=== PATIENT | male | born 1950 | race Caucasian/White ===

== ENCOUNTER 2023-10-06 08:33 | Inpatient (IN) | payer MEDICARE, OTHER, SELFPAY ==
[2023-10-06 08:34] VITALS: BP 149/87; PULSE 96; RESP 18; TEMP 35.6; O2SAT 98; BMI 24.3
--- NOTE | 2023-10-06 09:55 | CT_ITS ---
STUDY: CT PELVIS WITH CONTRAST REASON FOR EXAM: Male, 72 years old. Right buttock cellulitis ? Abscess RADIATION DOSAGE (If Supplied By Facility): CTDIvol = ( 7.10 ) mGy, DLP = ( 310.55 ) mGycm TECHNIQUE: Transaxial imaging of the pelvis was performed without oral contrast. 100 CC ISOVUE 300 was administered intravenously. Multiplanar coronal and sagittal images were reformatted. Individualized dose optimization techniques were used for this CT. COMPARISON: None. FINDINGS: There are extensive inflammatory changes in the medial aspect of the upper right buttock in the subcutaneous tissues. There is a focal area of decreased attenuation measuring 2.7 cm x 2 cm x 2.9 cm. This may represent phlegmon with early abscess formation. Distended urinary bladder. Central prostatic calcification. The prostate measures 4 cm x 4.8 cm. Normal visualized small intestine. Normal visualized colon. There is no pelvic fluid. There is no pelvic lymphadenopathy or mass lesion. Normal visualized pelvic arteries. Normal abdominal wall. The patient is status post right total hip replacement. CT/Pelvis WITH IV Contrast IMPRESSION: Inflammatory changes seen in the medial aspect of the proximal right buttock in keeping with a cellulitis. Focal area of the soft tissue density with early abscess formation measuring 2.7 cm x 2 cm x 2.9 cm. Electronically Signed: Trent Liz MD at 11:02 EST ,
--- NOTE | 2023-10-06 09:58 | EX.ED.DYSGE1 ---
HPI History of Present Illness Chief Complaint: Wound Detail of Chief Complaint: Right buttock redness, swelling and pain. Informant: patient and spouse/S.O. Onset/Context/Timing Onset: Days Context: Gradual Onset Timing: Continuous Current Severity: Moderate Maximum Severity: Moderate Narrative Narrative: Healthy 72-year-old male no seen past medical history. He had a lump on his right buttock was seen in urgent care at the [facility] was placed on antibiotic Bactrim. He had no incision and drainage. Now he is having increasing pain redness and swelling. He denies any fever or chills. Prior similar symptoms: No Recent Illness/Hospitalization: No PFSH PFSH Medical History no medical history no medical history Home Medications amoxicillin 500 mg capsule 2,000 mg PO X1 dental procedure 10/06/23 [History Last Taken 07/28/23] pantoprazole 40 mg tablet,delayed release 40 mg PO DAILY ACID REFLUX 10/06/23 [History Last Taken Unknown] sulfamethoxazole 800 mg-trimethoprim 160 mg tablet 1 tab PO Q12H ANTIBIOTIC 10/06/23 [History Last Taken Unknown] Allergy/AdvReac Type Severity Reaction Status Date / Time No Known Allergies Allergy Verified 10/06/23 10:28 Surgical History no surgical history no surgical history Social History Smoking Status: Never smoker ROS ROS ED ROS Narrative Right buttock cellulitis and pain. No fever or chills. No recent illness. Review of Systems ROS Unobtainable: Denies due to encephalopathy Constitutional Constitutional ED: Denies chills or fever(s) Eyes Eyes: Denies blurry vision ENT ENT ED: Denies ear pain Cardiovascular Cardiovascular: Denies chest pain Respiratory/Chest Respiratory/Chest: Denies cough or dyspnea Gastrointestinal Gastrointestinal: Denies abdominal pain Genitourinary Genitourinary ED: Denies dysuria or hematuria Musculoskeletal Musculoskeletal: Denies arthralgias or back pain Integumentary Denies abscess or Abrasions Neurologic Neurologic: Denies headache(s) Psychiatric Psychiatric: Denies anxiety or depression Endocrine Endocrinology: Denies cold intolerance Hematologic/Lymphatic Hematologic/Lymphatic: Reports none Allergic/Immunologic Allergic/Immunologic ED: Denies mouth swelling or tongue swelling EXAM Physical Exam Narrative Exam Narrative: 72-year-old no acute distress. Vital signs are stable afebrile. H EENT exam unremarkable. Neck nontender. Lungs clear. Heart regular rhythm no murmur. Chest wall nontender. Abdomen soft nontender. Back unremarkable. Moving all 4 extremities. His right buttock medially and towards his buttock cleft there is a large area of cellulitis and tenderness. I do not palpate an obvious abscess or see any pus. There is no drainage. It is localized to that area and towards the anus. Neurologically patient is awake and alert. He does not look in septic or toxic. is present in the room. Const Vital Signs: 10/06/23 08:34 10/06/23 12:01 10/06/23 14:26 Temperature 96.1 F L 98.4 F Temperature Source Temporal Pulse Rate 96 75 78 Respiratory Rate 18 14 17 Blood Pressure 149/87 H 136/80 H 142/81 H Blood Pressure Mean 107 98 101 Pulse Ox 98 96 96 Oxygen Delivery Method Room Air Room Air Positive well nourished and well developed; Negative for obese, cachectic, contractures or unkempt General Appearance ED: well developed and NAD; Negative for unkempt, cachectic, contractures, cyanotic, diaphoretic or pallor Nutritional Appearance: Negative for cachectic or obese HEENT Reports moist mucous membranes; Denies dry mucous membranes Negative for trauma or tenderness Mouth ED: No dry mucous membranes Mouth: No dry mucous membranes Eyes PERRL and EOMs intact bilaterally General Eye ED: Negative for pale conjunctiva Neck no lymphadenopathy, supple and no JVD General: Negative for tenderness Lymph Lymphatic: Negative for other Chest Wall inspection of chest normal and palpation of chest normal Chest: Negative for other Resp normal respiratory effort and clear to auscultation bilaterally Effort and Inspection: Negative for retractions Auscultation: Negative for rales, rhonchi or wheezes Cardio regular rate, regular rhythm, S1 normal heart sound, S2 normal heart sound and no murmurs Palpation: Negative for palpable S3 or palpable S4 Rate: Negative for bradycardia or tachycardic Rhythm: Negative for abnormal rhythm GI normal to inspection, nondistended, normoactive bowel sounds, non-tender, non-distended and no masses GI Narrative: Right buttock has redness, tenderness and some edema. It is an obvious cellulitis on the medial aspect of the right buttock towards his anus. There is no obvious abscess on the skin. Tender to palpation. Inspection: Negative for abdominal distention Auscultation: normoactive bowel sounds Palpation: soft and rebound tenderness present; Negative for tender or guarding Back/Spine no CVA tenderness General Back: Negative for CVA tenderness Cervical Spine: Negative for cervical spine tenderness Thoracic Spine / Upper Back: Negative for thoracic spinal tenderness or paraspinal muscle tenderness Lumbar Spine / Lower Back: Negative for lumbar spinal tenderness Extremity normal to inspection General Extremety ED: Negative for edema or tenderness General Extremity: Negative for edema Neuro oriented x3 and CN's II-XII intact bilaterally Sensorium / Orientation: alert; Negative for orientation impaired, lethargic or stuporous Motor Exam: strength 5/5 throughout; Negative for general weakness or strength abnormal Psych mental status grossly normal Appearance: Negative for unkempt Attitude: No agitated Mood & Affect: Negative for depressed, anxious or tearful Skin no rashes or lesions noted and no wounds Skin Narrative: Right buttock cellulitis medially. General Skin Exam: Negative for jaundice or pallor Lesions: No lesion noted MDM MDM MDM Narrative Medical decision making narrative: Healthy 72-year-old 1 week history of what sounds like a right buttock abscess with cellulitis was treated with outpatient Bactrim by an urgent care but no incision and drainage was done. It is only gotten worse. He denies any systemic symptoms. I do not see an obvious abscess at this time it may be deeper in the soft tissue. Screening labs, CAT scan are being obtained. To be given a dose of IV Unasyn. Right buttock let was applied. I cleaned the area with alcohol. I tried a aspiration with a 19-gauge needle and there was no pus. I spoke with the general surgeon Dr. Hans kwong. He reviewed the CAT scan also. No obvious abscess. After he and I talked I did the aspiration there was no pus so we do not feel that incision and drainage would be helpful at this time. History & Record Review Discussion w/independent historian: Patient Lab Data Attestation: I reviewed the patient's lab results. Lab results narrative: CBC shows white count 9. H&H 12 and 37. Platelets 235. Electrolytes show a gap of 5. Normal BUN of 13 creatinine 0.9. Glucose 99. CAT scan shows cellulitis of his buttock. Labs: Laboratory Results - last 24 hr 10/06/23 10:05 WBC 9.7 RBC 3.95 L Hgb 12.3 L Hct 37.3 L MCV 94.4 H MCH 31.1 MCHC 33.0 RDW Std Deviation 42.9 RDW Coeff of So 12.3 Plt Count 235 MPV 10.1 Immature Gran % (Auto) 0.500 Neut % (Auto) 65.7 Lymph % (Auto) 17.7 L [place] % (Auto) 13.9 H Eos % (Auto) 1.5 Baso % (Auto) 0.7 Absolute Neuts (auto) 6.4 Absolute Lymphs (auto) 1.72 Nucleated RBC % 0 Sodium 137 Potassium 4.0 Chloride 105 Carbon Dioxide 27.0 Anion Gap 5 BUN 13 Creatinine 0.94 Estim Creat Clear Calc 67.71 Est GFR (MDRD) Af Amer 100 Est GFR (MDRD) Non-Af 83 BUN/Creatinine Ratio 13.8 Glucose 99 Calcium 8.7 Radiography Diagnostic Testing: Clinical Impression(s) from Imaging Studies Pelvis CT 10/06/23 09:55 IMPRESSION: Inflammatory changes seen in the medial aspect of the proximal right buttock in keeping with a cellulitis. Focal area of the soft tissue density with early abscess formation measuring 2.7 cm x 2 cm x 2.9 cm. Electronically Signed: Trent Liz MD at 11:02 EST , Discharge Plan Dx/Rx/DC Orders Clinical Impression: Failure of outpatient treatment, Cellulitis of buttock, right Disposition Disposition: Acute Care [facility]
[2023-10-06 10:15] LABS: Absolute Lymphocyte Count 1.72 X10^3/uL (0.83-4.51); Absolute Neutrophil Count 6.4 X10^3/uL (2.0-7.7); Basophil# 0.07 X10^3/uL; Basophil% 0.7 % (0-1); Eosinophil# 0.15 X10^3/uL; Eosinophils% 1.5 % (0-5); Hematocrit 37.3 % (40-54); Hemoglobin 12.3 g/dL (13.0-16.5); Lymphocyte # 1.72 X10^3/ul (0.83-4.51); Lymphocyte % 17.7 % (19-41); Mean Corpuscular Hgb 31.1 pg (27.0-32.0); Mean Corpuscular Volume 94.4 fL (80-94); Mean Platelet Vol. 10.1 fl (6.2-12.0); Monocyte# 1.35 X10^3/uL; Monocyte% 13.9 % (0-10); NRBC Flagged by Analyzer 0 % (0-5); Neutrophil # 6.37 X10^3/uL (2.7-7.7); Neutrophil % 65.7 % (47-70); Platelet Count 235 K/mm3 (150-450); RBC Distribution Width CV 12.3 % (11.6-14.6); RBC Distribution Width SD 42.9 fl (35.1-43.9); Red Blood Count 3.95 M/mm3 (4.6-6.2); White Blood Count 9.7 K/mm3 (4.4-11.0)
[2023-10-06 10:32] LABS: Anion Gap 5 (5-15); BUN 13 mg/dL (7-18); BUN/Creat Ratio 13.8 RATIO (10-20); Calcium,Total 8.7 mg/dL (8.5-10.1); Chloride 105 mmol/L (98-107); Creatinine, Serum 0.94 mg/dL (0.70-1.30); EST Glomerular Filtration Rate 83 mL/min (>60); Est Glom Filt Rate - Afr Amer 100 mL/min (>60); Estimated Creatinine Clearance 67.71 ml/min; Glucose 99 mg/dL (74-106); Sodium Level 137 mmol/L (136-145)
[2023-10-06] MEDS: Ampicillin/Sulbactam 3 GM in 0.9% Normal Saline (100mL MB+) 100 ML IV ×3 (10:47→23:21)
[2023-10-06 12:01] VITALS: BP 136/80; PULSE 75; RESP 14; O2SAT 96
[2023-10-06 14:26] VITALS: BP 142/81; PULSE 78; RESP 17; TEMP 36.9; O2SAT 96
--- NOTE | 2023-10-06 15:57 | HP.PCM.HOS_ITS ---
HPI - General General Date of Admission: 10/06/23 Date of Service: 10/06/23 Chief Complaint: Right buttock cellulitis HPI Narrative NIRMALA PALOMINO, is a 72-year-old male history of GERD presented to [facility] ED 10/06/2023 with right buttock redness and swelling. Was seen recently in urgent care at [facility] and placed on Bactrim but symptoms have worsened prompting him to come to ED. In the ED lab workup overall unremarkable but there were inflammatory changes seen on CT scan on medial aspect of proximal right buttock in keeping with cellulitis, there is a question of early abscess formation, attempted aspiration in ED with no pus, case was discussed with surgery who reviewed CT and did not feel there was an abscess or need for I&D at this time and it was recommended patient be admitted for IV antibiotics due to failure of outpatient management. Patient evaluated with at bedside, reportedly the symptoms have been going on for a week and then over the past couple of days despite antibiotics have worsened, denies any problems with his urination or bowels, does have pain with his redness and swe lling but no fevers or chills, no other focal or systemic complaints PFSH Medical History no medical history Home Medications amoxicillin 500 mg capsule 2,000 mg PO X1 dental procedure 10/06/23 [History Last Taken 07/28/23] pantoprazole 40 mg tablet,delayed release 40 mg PO DAILY ACID REFLUX 10/06/23 [History Last Taken Unknown] sulfamethoxazole 800 mg-trimethoprim 160 mg tablet 1 tab PO Q12H ANTIBIOTIC 10/06/23 [History Last Taken Unknown] Allergy/AdvReac Type Severity Reaction Status Date / Time No Known Allergies Allergy Verified 10/06/23 10:28 Surgical History no surgical history Social History Smoking Status: Never smoker ROS ROS Narrative General: Denies fever/chills HENT: Denies headache, denies stuffy nose, denies sore throat EYES: Denies changes in vision Resp: Denies cough, denies shortness of breath Cardiac: Denies chest pain GI: Denies abdominal pain, denies changes in bowel, denies nausea/vomiting : Denies changes in urination Extremity: Denies swelling MSK: Denies weakness Neuro: Denies any numbness/tingling Heme: Denies any bleeding or bruising Skin: Erythema, induration, swelling on inner aspect of right buttock Psychiatric: No complaints voiced Vital Signs Vital Signs Vital Signs: 10/06/23 08:34 10/06/23 12:01 10/06/23 14:26 Temperature 96.1 F L 98.4 F Temperature Source Temporal Pulse Rate 96 75 78 Respiratory Rate 18 14 17 Blood Pressure 149/87 H 136/80 H 142/81 H Blood Pressure Mean 107 98 101 Pulse Ox 98 96 96 Oxygen Delivery Method Room Air Room Air Weight Weight: 72.439 kg Body Mass Index (BMI) 24.3 Physical Exam Narrative General: Alert, oriented, no apparent distress HEENT: Atraumatic, normocephalic Eyes: Anicteric, normal conjunctiva, extraocular movements grossly intact Neck: Supple Respiratory: Clear to auscultation bilaterally, normal respiratory effort Cardiovascular: Regular rate and rhythm GI: Soft, nontender, nondistended Extremities: No edema Musculoskeletal: Moving all extremities Neuro: No overt focal neurological deficits Skin: Ill-defined erythema on right buttock with induration, slight pain on palpation, no focal fluid collection appreciated Psych: Cooperative Results Lab / Micro Data 10/06/23 10:05 10/06/23 10:05 Labs: Laboratory Results - last 24 hr 10/06/23 10:05: WBC 9.7, RBC 3.95 L, Hgb 12.3 L, Hct 37.3 L, MCV 94.4 H, MCH 31.1, MCHC 33.0, RDW Std Deviation 42.9, RDW Coeff of So 12.3, Plt Count 235, MPV 10.1, Immature Gran % (Auto) 0.500, Neut % (Auto) 65.7, Lymph % (Auto) 17.7 L, [place] % (Auto) 13.9 H, Eos % (Auto) 1.5, Baso % (Auto) 0.7, Absolute Neuts (auto) 6.4, Absolute Lymphs (auto) 1.72, Nucleated RBC % 0, Sodium 137, Potassium 4.0, Chloride 105, Carbon Dioxide 27.0, Anion Gap 5, BUN 13, Creatinine 0.94, Estim Creat Clear Calc 67.71, Est GFR (MDRD) Af Amer 100, Est GFR (MDRD) Non-Af 83, BUN/Creatinine Ratio 13.8, Glucose 99, Calcium 8.7 Imaging Radiology Impression Pelvis CT 10/06/23 09:55 IMPRESSION: Inflammatory changes seen in the medial aspect of the proximal right buttock in keeping with a cellulitis. Focal area of the soft tissue density with early abscess formation measuring 2.7 cm x 2 cm x 2.9 cm. Electronically Signed: Trent Liz MD at 11:02 EST , Assessment & Plan Assessment/Plan (1) Cellulitis of buttock, right: (2) GERD (gastroesophageal reflux disease): PLAN: Plan #Right buttock cellulitis -inflammatory changes seen on CT scan on medial aspect of proximal right buttock in keeping with cellulitis, there is a question of early abscess formation, attempted aspiration in ED with no pus, case was discussed with surgery who reviewed CT and did not feel there was an abscess or need for I&D at this time -Will admit for IV fluids and IV antibiotics -Will check MRSA swab -Supportive care #GERD -Continue PPI #DVT ppx: Lovenox subcu Sanjuanita Anton MD Charges/Coding Visit Charges Inpatient E&M: 91615 Init Hosp L1
[2023-10-06 17:15] VITALS: BP 140/83; PULSE 85; RESP 16; TEMP 37.1; O2SAT 96; BMI 22.7
[2023-10-06] MEDS: 0.9% Saline Lock 10 ML Syringe IV (17:53)
[2023-10-06] MEDS: 0.9% Normal Saline (1000mL) 1,000 ML 50 ML IV (17:53)
[2023-10-06] MEDS: Vancomycin IV 1,000 MG/200 ML BAG 200 MG IV (19:47)
[2023-10-06 21:00] VITALS: BP 137/70; PULSE 81; RESP 16; TEMP 37.1; O2SAT 98
[2023-10-06 21:14] LABS: M R Staph aureus DNA By PCR Negative (Negative); Probe Check PASS; Specimen Processing Control PASS
[2023-10-07 02:15] VITALS: BP 119/70; PULSE 90; RESP 16; TEMP 37.2; O2SAT 96
[2023-10-07] MEDS: Ampicillin/Sulbactam 3 GM in 0.9% Normal Saline (100mL MB+) 100 ML IV ×4 (05:31→23:17)
[2023-10-07 06:48] LABS: Absolute Lymphocyte Count 1.54 X10^3/uL (0.83-4.51); Absolute Neutrophil Count 7.5 X10^3/uL (2.0-7.7); Basophil# 0.06 X10^3/uL; Basophil% 0.6 % (0-1); Eosinophil# 0.11 X10^3/uL; Hematocrit 34.7 % (40-54); Hemoglobin 11.7 g/dL (13.0-16.5); Lymphocyte # 1.54 X10^3/ul (0.83-4.51); Lymphocyte % 14.3 % (19-41); Mean Corp Hgb Conc 33.7 g/dL (32-36); Mean Corpuscular Hgb 31.9 pg (27.0-32.0); Mean Corpuscular Volume 94.6 fL (80-94); Mean Platelet Vol. 10.5 fl (6.2-12.0); Monocyte# 1.47 X10^3/uL; Monocyte% 13.6 % (0-10); NRBC Flagged by Analyzer 0 % (0-5); Neutrophil # 7.52 X10^3/uL (2.7-7.7); Neutrophil % 69.9 % (47-70); Platelet Count 235 K/mm3 (150-450); RBC Distribution Width CV 12.4 % (11.6-14.6); RBC Distribution Width SD 43.1 fl (35.1-43.9); Red Blood Count 3.67 M/mm3 (4.6-6.2); White Blood Count 10.8 K/mm3 (4.4-11.0)
[2023-10-07 07:04] LABS: Anion Gap 3 (5-15); BUN 16 mg/dL (7-18); BUN/Creat Ratio 19.2 RATIO (10-20); Calcium,Total 8.7 mg/dL (8.5-10.1); Chloride 108 mmol/L (98-107); Creatinine, Serum 0.83 mg/dL (0.70-1.30); EST Glomerular Filtration Rate 96 mL/min (>60); Est Glom Filt Rate - Afr Amer 116 mL/min (>60); Estimated Creatinine Clearance 76.18 ml/min; Glucose 106 mg/dL (74-106); Potassium 4.2 mmol/L (3.5-5.1); Sodium Level 136 mmol/L (136-145)
[2023-10-07] MEDS: Vancomycin IV 500 MG/100 ML BAG 100 MG IV ×2 (08:06→19:47)
[2023-10-07] MEDS: Enoxaparin 40 MG/0.4 ML Syringe SC (09:13)
[2023-10-07] MEDS: Senna/Docusate Sodium 1 Tablet 2 TABLET PO (09:15)
[2023-10-07] MEDS: Pantoprazole Sodium 40 MG Tablet PO (09:15)
[2023-10-07 09:21] VITALS: BP 147/76; PULSE 80; RESP 18; TEMP 36.4; O2SAT 96
[2023-10-07 09:25] VITALS: PULSE 80
--- NOTE | 2023-10-07 12:57 | PCM.PROGNOTE ---
Subjective Subjective Patient seen and examined. He feels well today. He had no active complaints. He was admitted with a complaint of lump on his right buttock that is gradually gotten bigger and is to be managed for cellulitis of the right buttock. He denies any PE. Review of systems otherwise negative. Objective Data Objective Data Vital Signs: Vital Signs Temp Pulse Resp BP Pulse Ox O2 Del Method 97.6 F L 80 18 147/76 H 96 Room Air 10/07/23 09:21 10/07/23 09:25 10/07/23 09:21 10/07/23 09:21 10/07/23 09:21 10/07/23 09:25 Oxygen Delivery Method Room Air Weight: 149 lb 12.8 oz Body Mass Index (BMI) 22.7 Intake & Output: Intake and Output for Last 24 Hours 10/05/23 10/06/23 10/07/23 23:59 23:59 23:59 Intake Total 424 / 424 436 / 436 Balance 424 / 424 436 / 436 Lab / Micro Data 10/07/23 05:48 10/07/23 05:48 Labs: Laboratory Results - last 24 hr 10/06/23 18:45: MRSA (PCR) Negative 10/07/23 05:48: WBC 10.8, RBC 3.67 L, Hgb 11.7 L, Hct 34.7 L, MCV 94.6 H, MCH 31.9, MCHC 33.7, RDW Std Deviation 43.1, RDW Coeff of So 12.4, Plt Count 235, MPV 10.5, Immature Gran % (Auto) 0.600, Neut % (Auto) 69.9, Lymph % (Auto) 14.3 L, [place] % (Auto) 13.6 H, Eos % (Auto) 1.0, Baso % (Auto) 0.6, Absolute Neuts (auto) 7.5, Absolute Lymphs (auto) 1.54, Nucleated RBC % 0, Sodium 136, Potassium 4.2, Chloride 108 H, Carbon Dioxide 25.0, Anion Gap 3 L, BUN 16, Creatinine 0.83, Estim Creat Clear Calc 76.18, Est GFR (MDRD) Af Amer 116, Est GFR (MDRD) Non-Af 96, BUN/Creatinine Ratio 19.2, Glucose 106, Calcium 8.7 Physical Exam Const alert, oriented x3, no apparent distress and well nourished General Appearance: cooperative and well developed HEENT normocephalic, head/scalp atraumatic, moist oral mucous membranes and oropharynx normal Neck no lymphadenopathy, supple and no JVD Lymph Lymphatic: no lymphadenopathy noted and no lymphedema noted Resp normal respiratory effort, normal air movement and clear to auscultation bilaterally Cardio regular rate, regular rhythm, S1 normal heart sound, S2 normal heart sound and no murmurs GI normal to inspection, nondistended, normoactive bowel sounds, soft to palpation, non-tender and non-distended Extremity normal capillary refill, no clubbing, cyanosis or edema and no calf tenderness Skin Skin Narrative: induration and tenderness over right inner buttock, with erythematous induration ~ 8cm x 6cm. No differential warmth Neuro CN's II-XII intact bilaterally, no focal motor deficits, no sensory deficits noted and deep tendon reflexes 2+ bilaterally Motor Exam: strength 5/5 throughout Psych thought process normal, cooperative and affect normal Appearance: appropriate Assessment & Plan Assessment/Plan (1) Cellulitis of buttock, right: PLAN: Plan #Right buttock cellulitis failed outpatient treatment CT of the pelvis showed cellulitis of the proximal right buttock, with question of early abscess formation general surgery reivewed CT images and didnt think there was an abscess on IV vancomycin and unasyn PO tylenol, IV morphine and PO oxycodone for pain #GERD: on PPI DVT prophylaxis: lovenox Charges/Coding Visit Charges Inpatient E&M: 34062 [facility] Hosp L2
[2023-10-07 14:25] VITALS: BP 125/67; PULSE 77; RESP 16; TEMP 37.1; O2SAT 98
--- NOTE | 2023-10-07 14:56 | CASEMGMT ---
Social Work SW met w/pt and in room, reviewed prior level of function and anticipated discharge plan. PCP: Dr. Knowles Specialists: None Insurance: Medicare, [employer], [employer] Scripts for prescriptions Pharmacy: [facility]: LW/POA: They state they have completed the documents, SW asked to bring them in as able so we can place a copy on the chart Living arrangements: Pt lives in a one story home with a basement with his Prior level of function: Pt independent with all ADLs, drives DME: None needed SNF/HHC/Outpt therapies: No history of any of these Plan: TBD, likely home SW spoke w/pt and about anticipated discharge plan. Pt states plans to return home at discharge. SW explained that SW/CM will be following along should pt have any homegoing needs, such as IV antibiotics. Pt states understanding. SW/CM will continue to follow. DANIEL Vasquez
[2023-10-07] MEDS: Ibuprofen 600 MG Tablet PO (18:37)
[2023-10-07 20:00] VITALS: BP 102/76; PULSE 87; RESP 16; TEMP 37.1; O2SAT 94
[2023-10-07] MEDS: Acetaminophen 325 MG Tablet 650 MG PO (23:37)
[2023-10-07] MEDS: 0.9% Saline Lock 10 ML Syringe IV (23:37)
[2023-10-08 02:05] VITALS: BP 124/75; PULSE 71; RESP 16; TEMP 37.2; O2SAT 98
[2023-10-08] MEDS: Ampicillin/Sulbactam 3 GM in 0.9% Normal Saline (100mL MB+) 100 ML IV ×4 (05:06→23:51)
[2023-10-08 07:48] LABS: Absolute Lymphocyte Count 1.94 X10^3/uL (0.83-4.51); Absolute Neutrophil Count 5.3 X10^3/uL (2.0-7.7); Basophil# 0.06 X10^3/uL; Basophil% 0.7 % (0-1); Eosinophil# 0.39 X10^3/uL; Eosinophils% 4.4 % (0-5); Hematocrit 37.4 % (40-54); Hemoglobin 12.3 g/dL (13.0-16.5); Lymphocyte # 1.94 X10^3/ul (0.83-4.51); Lymphocyte % 21.8 % (19-41); Mean Corp Hgb Conc 32.9 g/dL (32-36); Mean Corpuscular Hgb 31.4 pg (27.0-32.0); Mean Corpuscular Volume 95.4 fL (80-94); Mean Platelet Vol. 10.1 fl (6.2-12.0); Monocyte# 1.09 X10^3/uL; Monocyte% 12.3 % (0-10); NRBC Flagged by Analyzer 0 % (0-5); Neutrophil # 5.34 X10^3/uL (2.7-7.7); Neutrophil % 60.1 % (47-70); Platelet Count 257 K/mm3 (150-450); RBC Distribution Width CV 12.4 % (11.6-14.6); RBC Distribution Width SD 43.4 fl (35.1-43.9); Red Blood Count 3.92 M/mm3 (4.6-6.2); White Blood Count 8.9 K/mm3 (4.4-11.0)
[2023-10-08 08:13] LABS: Anion Gap 0 (5-15); BUN 15 mg/dL (7-18); BUN/Creat Ratio 19.3 RATIO (10-20); Calcium,Total 8.8 mg/dL (8.5-10.1); Chloride 111 mmol/L (98-107); Creatinine, Serum 0.78 mg/dL (0.70-1.30); EST Glomerular Filtration Rate 104 mL/min (>60); Est Glom Filt Rate - Afr Amer 126 mL/min (>60); Estimated Creatinine Clearance 79.04 ml/min; Glucose 103 mg/dL (74-106); Potassium 4.1 mmol/L (3.5-5.1); Sodium Level 141 mmol/L (136-145)
[2023-10-08 08:14] LABS: Vancomycin, Trough Level 5.4 ug/mL (5.0-15.0)
[2023-10-08 08:23] VITALS: BP 123/72; PULSE 77; PULSE 80; RESP 18; TEMP 36.8; O2SAT 95
[2023-10-08] MEDS: Pantoprazole Sodium 40 MG Tablet PO (08:35)
[2023-10-08] MEDS: Enoxaparin 40 MG/0.4 ML Syringe SC (08:35)
[2023-10-08] MEDS: Ensure Plus High Protein 120 ML LIQUID PO ×3 (08:35→16:53)
--- NOTE | 2023-10-08 08:44 | PCM.RX.CS ---
Consult Antibiotic Management Pharmacy has been consulted to manage selected antibiotic: Vancomycin Type of Intervention Type of Consult: Follow-up Suspected Infection Suspected Infection: Skin/Soft tissue Prior Doses of Antibiotics Prior Doses of Antibiotics Received/Current Regimen: Received 1gm iv loading dose on 10.06.23 and has been on 500mg iv q12h after. Labs Labs: Sodium 141 mmol/L (136-145) 10/08/23 07:30 Potassium 4.1 mmol/L (3.5-5.1) 10/08/23 07:30 Chloride 111 mmol/L (98-107) H 10/08/23 07:30 Carbon Dioxide 30.0 mmol/L (21.0-32.0) 10/08/23 07:30 Anion Gap 0 (5-15) L 10/08/23 07:30 BUN 15 mg/dL (7-18) 10/08/23 07:30 Creatinine 0.78 mg/dL (0.70-1.30) 10/08/23 07:30 Est GFR (MDRD) Af Amer 126 mL/min (>60) 10/08/23 07:30 Est GFR (MDRD) Non-Af 104 mL/min (>60) 10/08/23 07:30 BUN/Creatinine Ratio 19.3 RATIO (10-20) 10/08/23 07:30 Glucose 103 mg/dL (74-106) 10/08/23 07:30 Vancomycin Trough 5.4 ug/mL (5.0-15.0) 10/08/23 07:30 Dosing Weight Weight used for dosin.4 kg Estimated Creatinine Clearance Estimated Creatinine Clearance: 79ml/min Goal Trough Goal Trough: 10-15 mcg/mL Pharmacy Plan for Drug Dosing Pharmacy Plan for Drug Dosing: Trough this AM 5.4 and below desired goal of 10-15mcg/ml. Recommend increasing dose to 1gm iv q12h with new trough before 4th dose of this change. Pharmacy Service will continue to monitor and adjust dosing as required. Follow-Up Labs Follow-Up Labs: Trough: Vancomycin (10.09.23 @2029)
[2023-10-08] MEDS: Vancomycin IV 1,000 MG/200 ML BAG 200 MG IV ×2 (09:40→20:14)
--- NOTE | 2023-10-08 09:40 | PN_ITS ---
Subjective Subjective Patient seen and examined. He says he is feeling better. He feels like the swelling has improved. He denies any pain, any fever or chills, coughing or chest pain, palpitations, dizziness, nausea vomiting or any other symptoms. Review of systems otherwise negative. Objective Data Objective Data Vital Signs: Vital Signs Temp Pulse Resp BP Pulse Ox O2 Del Method 98.2 F 77 18 123/72 H 95 Room Air 10/08/23 08:23 10/08/23 08:23 10/08/23 08:23 10/08/23 08:23 10/08/23 08:23 10/08/23 08:23 Oxygen Delivery Method Room Air Weight: 149 lb 12.8 oz Body Mass Index (BMI) 22.7 Intake & Output: Intake and Output for Last 24 Hours 10/06/23 10/07/23 10/08/23 23:59 23:59 23:59 Intake Total 424 / 424 1648 / 1648 224 / 224 Balance 424 / 424 1648 / 1648 224 / 224 Lab / Micro Data 10/08/23 07:30 10/08/23 07:30 Labs: Laboratory Results - last 24 hr 10/08/23 07:30: WBC 8.9, RBC 3.92 L, Hgb 12.3 L, Hct 37.4 L, MCV 95.4 H, MCH 31.4, MCHC 32.9, RDW Std Deviation 43.4, RDW Coeff of So 12.4, Plt Count 257, MPV 10.1, Immature Gran % (Auto) 0.700, Neut % (Auto) 60.1, Lymph % (Auto) 21.8, [place] % (Auto) 12.3 H, Eos % (Auto) 4.4, Baso % (Auto) 0.7, Absolute Neuts (auto) 5.3, Absolute Lymphs (auto) 1.94, Nucleated RBC % 0, Sodium 141, Potassium 4.1, Chloride 111 H, Carbon Dioxide 30.0, Anion Gap 0 L, BUN 15, Creatinine 0.78, Estim Creat Clear Calc 79.04, Est GFR (MDRD) Af Amer 126, Est GFR (MDRD) Non-Af 104, BUN/Creatinine Ratio 19.3, Glucose 103, Calcium 8.8, Vancomycin Trough 5.4 Physical Exam Const alert, oriented x3, no apparent distress and well nourished General Appearance: cooperative and well developed HEENT normocephalic, head/scalp atraumatic, moist oral mucous membranes and oropharynx normal Neck no lymphadenopathy, supple and no JVD Lymph Lymphatic: no lymphadenopathy noted and no lymphedema noted Resp normal respiratory effort, normal air movement and clear to auscultation bilaterally Cardio regular rate, regular rhythm, S1 normal heart sound, S2 normal heart sound and no murmurs GI normal to inspection, nondistended, normoactive bowel sounds, soft to palpation, non-tender and non-distended Extremity normal capillary refill, no clubbing, cyanosis or edema and no calf tenderness Skin Skin Narrative: induration and tenderness over right inner buttock, with erythematous induration ~ 8cm x 6cm. No differential warmth. Induarion and tenderness as well as erythema have improved moderately Neuro CN's II-XII intact bilaterally, no focal motor deficits, no sensory deficits noted and deep tendon reflexes 2+ bilaterally Motor Exam: strength 5/5 throughout Psych thought process normal, cooperative and affect normal Appearance: appropriate Assessment & Plan Assessment/Plan (1) Cellulitis of buttock, right: PLAN: Plan #Right buttock cellulitis * failed outpatient treatment * CT of the pelvis showed cellulitis of the proximal right buttock, with question of early abscess formation * general surgery reivewed CT images and didnt think there was an abscess * on IV vancomycin and unasyn * PO tylenol, IV morphine and PO oxycodone for pain * wbc is 8.9. Induration and swelling have improved. * #GERD: on PPI DVT prophylaxis: lovenox Charges/Coding Visit Charges Inpatient E&M: 85155 Subs Hosp L2
[2023-10-08] MEDS: Ibuprofen 600 MG Tablet PO ×2 (12:18→20:20)
[2023-10-08 15:40] VITALS: BP 129/69; PULSE 84; RESP 18; TEMP 36.5; O2SAT 98
[2023-10-08] MEDS: Acetaminophen 325 MG Tablet 650 MG PO (15:49)
[2023-10-08 20:20] VITALS: BP 143/90; PULSE 83; RESP 16; TEMP 37.2; O2SAT 97
[2023-10-09 02:20] VITALS: BP 109/66; PULSE 61; RESP 16; TEMP 36.9; O2SAT 99
[2023-10-09] MEDS: Acetaminophen 325 MG Tablet 650 MG PO ×3 (02:38→18:37)
[2023-10-09 04:19] LABS: Absolute Lymphocyte Count 1.99 X10^3/uL (0.83-4.51); Absolute Neutrophil Count 4.9 X10^3/uL (2.0-7.7); Basophil# 0.06 X10^3/uL; Basophil% 0.7 % (0-1); Eosinophil# 0.58 X10^3/uL; Eosinophils% 6.7 % (0-5); Hematocrit 32.7 % (40-54); Hemoglobin 10.6 g/dL (13.0-16.5); Lymphocyte # 1.99 X10^3/ul (0.83-4.51); Lymphocyte % 22.8 % (19-41); Mean Corp Hgb Conc 32.4 g/dL (32-36); Mean Corpuscular Hgb 31.1 pg (27.0-32.0); Mean Corpuscular Volume 95.9 fL (80-94); Mean Platelet Vol. 10.1 fl (6.2-12.0); Monocyte# 1.16 X10^3/uL; Monocyte% 13.3 % (0-10); NRBC Flagged by Analyzer 0 % (0-5); Neutrophil # 4.86 X10^3/uL (2.7-7.7); Neutrophil % 55.8 % (47-70); Platelet Count 242 K/mm3 (150-450); RBC Distribution Width CV 12.3 % (11.6-14.6); RBC Distribution Width SD 43.5 fl (35.1-43.9); Red Blood Count 3.41 M/mm3 (4.6-6.2); White Blood Count 8.7 K/mm3 (4.4-11.0)
[2023-10-09 04:42] LABS: Anion Gap 1 (5-15); BUN 20 mg/dL (7-18); BUN/Creat Ratio 28.1 RATIO (10-20); Calcium,Total 8.7 mg/dL (8.5-10.1); Chloride 109 mmol/L (98-107); Creatinine, Serum 0.71 mg/dL (0.70-1.30); EST Glomerular Filtration Rate 115 mL/min (>60); Est Glom Filt Rate - Afr Amer 139 mL/min (>60); Estimated Creatinine Clearance 79.04 ml/min; Glucose 103 mg/dL (74-106); Potassium 3.9 mmol/L (3.5-5.1); Sodium Level 140 mmol/L (136-145)
[2023-10-09] MEDS: Ampicillin/Sulbactam 3 GM in 0.9% Normal Saline (100mL MB+) 100 ML IV ×3 (05:18→18:37)
[2023-10-09 08:42] VITALS: BP 131/86; PULSE 76; RESP 16; TEMP 36.4; O2SAT 100
[2023-10-09] MEDS: Ensure Plus High Protein 120 ML LIQUID PO ×2 (08:56→12:35)
[2023-10-09] MEDS: Ibuprofen 600 MG Tablet PO ×3 (08:56→21:04)
[2023-10-09] MEDS: Pantoprazole Sodium 40 MG Tablet PO (08:57)
[2023-10-09] MEDS: Enoxaparin 40 MG/0.4 ML Syringe SC (08:57)
[2023-10-09] MEDS: Vancomycin IV 1,000 MG/200 ML BAG 200 MG IV ×2 (08:58→21:21)
--- NOTE | 2023-10-09 09:31 | PN_ITS ---
Subjective Subjective Patient seen and examined. He says he is feeling a bit better. He has started having drainage from the cellulitic area on the right buttock. Review of systems is otherwise negative. Objective Data Objective Data Vital Signs: Vital Signs Temp Pulse Resp BP Pulse Ox O2 Del Method 97.6 F L 76 16 131/86 H 100 Room Air 10/09/23 08:42 10/09/23 08:42 10/09/23 08:42 10/09/23 08:42 10/09/23 08:42 10/09/23 08:43 Oxygen Delivery Method Room Air Weight: 149 lb 12.8 oz Body Mass Index (BMI) 22.7 Intake & Output: Intake and Output for Last 24 Hours 10/07/23 10/08/23 10/09/23 23:59 23:59 23:59 Intake Total 1648 / 1648 848 / 848 224 / 224 Balance 1648 / 1648 848 / 848 224 / 224 Lab / Micro Data 10/09/23 03:40 10/09/23 03:40 Labs: Laboratory Results - last 24 hr 10/09/23 03:40: WBC 8.7, RBC 3.41 L, Hgb 10.6 L, Hct 32.7 L, MCV 95.9 H, MCH 31.1, MCHC 32.4, RDW Std Deviation 43.5, RDW Coeff of So 12.3, Plt Count 242, MPV 10.1, Immature Gran % (Auto) 0.700, Neut % (Auto) 55.8, Lymph % (Auto) 22.8, [place] % (Auto) 13.3 H, Eos % (Auto) 6.7 H, Baso % (Auto) 0.7, Absolute Neuts (auto) 4.9, Absolute Lymphs (auto) 1.99, Nucleated RBC % 0, Sodium 140, Potassium 3.9, Chloride 109 H, Carbon Dioxide 30.0, Anion Gap 1 L, BUN 20 H, Creatinine 0.71, Estim Creat Clear Calc 79.04, Est GFR (MDRD) Af Amer 139, Est GFR (MDRD) Non-Af 115, BUN/Creatinine Ratio 28.1 H, Glucose 103, Calcium 8.7 Physical Exam Const alert, oriented x3, no apparent distress and well nourished General Appearance: cooperative and well developed HEENT normocephalic, head/scalp atraumatic, moist oral mucous membranes and oropharynx normal Eyes PERRL and EOMs intact bilaterally Neck no lymphadenopathy, supple and no JVD Lymph Lymphatic: no lymphadenopathy noted and no lymphedema noted Resp normal respiratory effort, normal air movement and clear to auscultation bilaterally Cardio regular rate, regular rhythm, S1 normal heart sound, S2 normal heart sound and no murmurs GI normal to inspection, nondistended, normoactive bowel sounds, soft to palpation, non-tender and non-distended Extremity normal capillary refill, no clubbing, cyanosis or edema and no calf tenderness Skin Skin Narrative: induration and tenderness over right inner buttock, with erythematous induration ~ 8cm x 6cm. No differential warmth. Indurated area is much more fluctuant now, with an area of drainage. Neuro CN's II-XII intact bilaterally, no focal motor deficits, no sensory deficits noted and deep tendon reflexes 2+ bilaterally Motor Exam: strength 5/5 throughout Psych thought process normal, cooperative and affect normal Appearance: appropriate Assessment & Plan Assessment/Plan (1) Cellulitis of buttock, right: PLAN: Plan #Right buttock cellulitis * failed outpatient treatment * CT of the pelvis showed cellulitis of the proximal right buttock, with question of early abscess formation * general surgery reviewed CT images and didnt think there was an abscess * patient now having drainage from the area, with associated fluctuance indicating abscess formation * on IV vancomycin and unasyn * PO tylenol, IV morphine and PO oxycodone for pain * wbc is 8.7. * consult general surgery to see if he will benefit from I&D. * * #GERD: on PPI DVT prophylaxis: lovenox Charges/Coding Visit Charges Inpatient E&M: 70402 [facility] Hosp L2
--- NOTE | 2023-10-09 11:37 | EX.PCM.CON.S ---
Assessment & Plan Assessment/Plan (1) Abscess of right buttock: (2) Cellulitis of buttock, right: (3) Failure of outpatient treatment: PLAN: Plan Discussed with patient plan for incision and drainage of right buttock abscess at bedside as bedside ultrasound did show an area that could be drained. Discussed procedure including but not limited to bleeding, need for further intervention due to infection and etc. Patient no further question this time. Heavenly Lee M.D. Pager: [phone] [facility] [address] [place] [address], Outpatient Pavilion, [address] [place] [address] Office: [phone] HPI Consult Data Date of Consult: 10/09/23 HPI Narrative HPI Narrative: NIRMALA PALOMINO, is a 72 M who presents to the ER due to failure of outpatient management of right buttock abscess/cellulitis. Patient states a week ago Monday/Monday he noticed a bump on his right buttocks with pain. Patient states he did see his PCP on Monday and did get antibiotics. Patient did state the swelling did go down some but is still quite tender thus he presented to the ER. CT abdomen pelvis called cellulitis and early abscess 2.9 x 2.2 by 2.7 x 2 x 2.9 cm. Patient has been on Unasyn here. Cultures obtained here currently pending. patient denies any history of previous abscess or swelling in this area. Patient states it started draining purulent material yesterday. Patient denies ever having colonoscopy or family history of colon cancer. [facility] Medical History no medical history Home Medications amoxicillin 500 mg capsule 2,000 mg PO X1 dental procedure 10/06/23 [History Last Taken 07/28/23] pantoprazole 40 mg tablet,delayed release 40 mg PO DAILY ACID REFLUX 10/06/23 [History Last Taken Unknown] sulfamethoxazole 800 mg-trimethoprim 160 mg tablet 1 tab PO Q12H ANTIBIOTIC 10/06/23 [History Last Taken Unknown] Allergy/AdvReac Type Severity Reaction Status Date / Time No Known Allergies Allergy Verified 10/06/23 17:45 Surgical History no surgical history Social History (Updated 10/06/23 @ 17:27 by Renée Lamar) household members: spouse Smoking Status: Never smoker ROS Constitutional Constitutional: Denies anorexia Eyes Eyes: Denies blurry vision ENT HEENT: Denies dysphagia Cardiovascular Cardiovascular: Denies chest pain Respiratory/Chest Respiratory/Chest: Denies productive cough Gastrointestinal Gastrointestinal: Denies abdominal pain Genitourinary Genitourinary: Denies dysuria Integumentary Integumentary: Reports new lesions Neurologic Neurologic: Denies focal weakness Psychiatric Psychiatric: Denies anxiety or depression Endocrine Endocrinology: Denies palpitations Hematologic/Lymphatic Hematologic/Lymphatic: Denies easy bleeding Physical Exam Const alert, oriented x3 and no apparent distress HEENT normocephalic and head/scalp atraumatic Resp normal respiratory effort Cardio regular rate GI soft to palpation and non-tender; Negative for non-distended Palpation: Negative for guarding Extremity no clubbing, cyanosis or edema Skin Skin Narrative: Right buttock induration/cellulitis (about 6 x 4 cm) improved from previous cherry?abscess seen with bedside ultrasound. Tender to palpation thinning of the skin over this area with some drainage?purulent. Neuro CN's II-XII intact bilaterally Psych mental status grossly normal Lab / Micro Data 10/09/23 03:40 10/09/23 03:40 Labs: Laboratory Results - last 24 hr 10/09/23 03:40: WBC 8.7, RBC 3.41 L, Hgb 10.6 L, Hct 32.7 L, MCV 95.9 H, MCH 31.1, MCHC 32.4, RDW Std Deviation 43.5, RDW Coeff of So 12.3, Plt Count 242, MPV 10.1, Immature Gran % (Auto) 0.700, Neut % (Auto) 55.8, Lymph % (Auto) 22.8, [place] % (Auto) 13.3 H, Eos % (Auto) 6.7 H, Baso % (Auto) 0.7, Absolute Neuts (auto) 4.9, Absolute Lymphs (auto) 1.99, Nucleated RBC % 0, Sodium 140, Potassium 3.9, Chloride 109 H, Carbon Dioxide 30.0, Anion Gap 1 L, BUN 20 H, Creatinine 0.71, Estim Creat Clear Calc 79.04, Est GFR (MDRD) Af Amer 139, Est GFR (MDRD) Non-Af 115, BUN/Creatinine Ratio 28.1 H, Glucose 103, Calcium 8.7 Charges/Coding Visit Charges Inpatient E&M: 12710 Init Hosp L2
[2023-10-09] MEDS: 0.9% Saline Lock 10 ML Syringe IV (11:47)
[2023-10-09] MEDS: Morphine 2 MG/ML Syringe IV (11:48)
--- NOTE | 2023-10-09 12:06 | PCM.OPRPT ---
Report of Operation Date of Procedure: 10/09/23 Pre-Operative Diagnosis: Right buttock abscess Post-Operative Diagnosis: Same Surgery/Procedure Performed:: Incision and drainage of right buttock abscess Surgeon: Heavenly Lee Type of Anesthesia: Local Specimen's removed: Culture of abscess fluid Estimated Blood Loss (mL): < 10 cc Description of Procedure: Informed consent was obtained. Patient's right buttock was prepped draped in the usual sterile fashion with Betadine. Local anesthesia 1% lidocaine was used at the area of planned incision total of 6 cc. 11 blade scalpel was used to make an incision about 1.5 cm with additional incision perpendicular to make at T incision. About 20 cc of purulent material was expressed?culture was sent. Saline was used to irrigate the cavity. Cavity was about 3 cm deep and about 2 cm height. This was packed with half-inch packing. And covered with gauze and ABD. Patient tolerated procedure well. Complications none
[2023-10-09 12:30] VITALS: BP 118/65; PULSE 73; RESP 16; TEMP 36.6; O2SAT 96
[2023-10-09] MEDS: Lidocaine 1% (20 ml mdv) 20 ML Vial INFILT (12:31)
[2023-10-09 14:51] VITALS: BP 123/58; PULSE 77; RESP 16; TEMP 36.6; O2SAT 94
[2023-10-09 18:42] VITALS: BP 125/77; PULSE 77; RESP 18; TEMP 37.1; O2SAT 97
[2023-10-09 20:56] VITALS: BP 147/80; PULSE 73; RESP 15; TEMP 36.8; O2SAT 95
[2023-10-09 21:09] LABS: Vancomycin, Trough Level 11.7 ug/mL (5.0-15.0)
[2023-10-09] MEDS: Vancomycin Trough/Random Due 1 LAB MC (21:22)
--- NOTE | 2023-10-09 21:23 | PCM.RX.CS ---
Consult Antibiotic Management Pharmacy has been consulted to manage selected antibiotic: Vancomycin Type of Intervention Type of Consult: Follow-up Labs Labs: Sodium 140 mmol/L (136-145) 10/09/23 03:40 Potassium 3.9 mmol/L (3.5-5.1) 10/09/23 03:40 Chloride 109 mmol/L (98-107) H 10/09/23 03:40 Carbon Dioxide 30.0 mmol/L (21.0-32.0) 10/09/23 03:40 Anion Gap 1 (5-15) L 10/09/23 03:40 BUN 20 mg/dL (7-18) H 10/09/23 03:40 Creatinine 0.71 mg/dL (0.70-1.30) 10/09/23 03:40 Est GFR (MDRD) Af Amer 139 mL/min (>60) 10/09/23 03:40 Est GFR (MDRD) Non-Af 115 mL/min (>60) 10/09/23 03:40 BUN/Creatinine Ratio 28.1 RATIO (10-20) H 10/09/23 03:40 Glucose 103 mg/dL (74-106) 10/09/23 03:40 Vancomycin Trough 11.7 ug/mL (5.0-15.0) 10/09/23 20:25 Goal Trough Goal Trough: 10-15 mcg/mL Pharmacy Plan for Drug Dosing Pharmacy Plan for Drug Dosing: Pharmacy Service will continue to monitor and adjust dosing as required. TROUGH 11.7 @ 11.5 HOURS (GOAL 10-15) NO CHANGES, FOLLOW UP TROUGH IN 2 DAYS Follow-Up Labs Follow-Up Labs: Trough: Vancomycin Date/Time Labs Ordered Labs to be done on [date and time ordered]: 10/11 @ 2030
[2023-10-10] MEDS: Ampicillin/Sulbactam 3 GM in 0.9% Normal Saline (100mL MB+) 100 ML IV ×3 (01:52→12:00)
[2023-10-10 04:00] VITALS: BP 131/78; PULSE 71; RESP 15; TEMP 36.4; O2SAT 96
[2023-10-10 05:00] VITALS: RESP 15; O2SAT 96
[2023-10-10 07:54] LABS: Absolute Lymphocyte Count 2.18 X10^3/uL (0.83-4.51); Absolute Neutrophil Count 2.9 X10^3/uL (2.0-7.7); Basophil# 0.07 X10^3/uL; Basophil% 1.1 % (0-1); Eosinophil# 0.42 X10^3/uL; Eosinophils% 6.4 % (0-5); Hematocrit 32.6 % (40-54); Hemoglobin 10.7 g/dL (13.0-16.5); Lymphocyte # 2.18 X10^3/ul (0.83-4.51); Lymphocyte % 33.4 % (19-41); Mean Corp Hgb Conc 32.8 g/dL (32-36); Mean Corpuscular Volume 94.5 fL (80-94); Mean Platelet Vol. 10.2 fl (6.2-12.0); Monocyte# 0.92 X10^3/uL; Monocyte% 14.1 % (0-10); NRBC Flagged by Analyzer 0 % (0-5); Neutrophil # 2.86 X10^3/uL (2.7-7.7); POSITIVE MORPHOLOGY YES; Platelet Count 270 K/mm3 (150-450); RBC Distribution Width CV 12.2 % (11.6-14.6); RBC Distribution Width SD 42.5 fl (35.1-43.9); Red Blood Count 3.45 M/mm3 (4.6-6.2); White Blood Count 6.5 K/mm3 (4.4-11.0)
[2023-10-10 07:56] LABS: Differential Indicated SCAN CRITERIA MET; Neutrophil % 2.9 % (47-70)
--- NOTE | 2023-10-10 08:06 | PN.SURG_ITS ---
Subjective Subjective Patient evaluated resting comfortably in bed. Patient is s/p incision and drainage of right gluteal abscess at bedside by Dr. Lee on 10/09/23. Patient tolerated the procedure well. Patient notes minimal discomfort. Packing remains in the cavity at this time. Objective Data Objective Data Vital Signs: Vital Signs Temp Pulse Resp BP Pulse Ox O2 Del Method 97.6 F L 71 15 131/78 H 96 Room Air 10/10/23 04:00 10/10/23 04:00 10/10/23 05:00 10/10/23 04:00 10/10/23 05:00 10/10/23 05:00 Oxygen Delivery Method Room Air Weight: 149 lb 12.8 oz Body Mass Index (BMI) 22.7 Intake & Output: Intake and Output for Last 24 Hours 10/08/23 10/09/23 10/10/23 23:59 23:59 23:59 Intake Total 848 / 848 1598 / 1598 312 / 312 Balance 848 / 848 1598 / 1598 312 / 312 Lab / Micro Data 10/10/23 07:17 10/10/23 07:17 Labs: Laboratory Results - last 24 hr 10/09/23 20:25: Vancomycin Trough 11.7 10/10/23 07:17: WBC 6.5, RBC 3.45 L, Hgb 10.7 L, Hct 32.6 L, MCV 94.5 H, MCH 31.0, MCHC 32.8, RDW Std Deviation 42.5, RDW Coeff of So 12.2, Plt Count 270, MPV 10.2, Immature Gran % (Auto) 1.200 H, Neut % (Auto) 2.9 L, Lymph % (Auto) 33.4, [place] % (Auto) 14.1 H, Eos % (Auto) 6.4 H, Baso % (Auto) 1.1 H, Absolute Neuts (auto) 2.9, Absolute Lymphs (auto) 2.18, Nucleated RBC % 0 Physical Exam GI GI Narrative: Right gluteal wound- packing intact. Moderate amount of serous drainage noted. Improved erythema noted. Assessment & Plan Assessment/Plan (1) Abscess of right buttock: PLAN: I am following this patient in conjunction with Dr. Lee. She will independently evaluate this patient. Culture pending Awaiting gram stain to narrow antibiotics Patient may be discharged from a surgical standpoint today Follow-up with Dr. Lee in 1 week Charges/Coding Visit Charges Inpatient E&M: 86522 Subs Hosp L1 (No charge; post-op)
[2023-10-10 08:08] LABS: Anion Gap 1 (5-15); BUN 16 mg/dL (7-18); BUN/Creat Ratio 23.9 RATIO (10-20); Calcium,Total 8.3 mg/dL (8.5-10.1); Chloride 111 mmol/L (98-107); Creatinine, Serum 0.67 mg/dL (0.70-1.30); EST Glomerular Filtration Rate 123 mL/min (>60); Est Glom Filt Rate - Afr Amer 149 mL/min (>60); Estimated Creatinine Clearance 79.04 ml/min; Glucose 97 mg/dL (74-106); Potassium 3.8 mmol/L (3.5-5.1); Sodium Level 142 mmol/L (136-145)
[2023-10-10 08:23] LABS: Differential Comment SCANNED; Reactive Lymphocyte 1+
[2023-10-10] MEDS: Vancomycin IV 1,000 MG/200 ML BAG 200 MG IV (09:08)
[2023-10-10 09:16] VITALS: BP 134/85; PULSE 79; RESP 18; TEMP 36.5; O2SAT 98
[2023-10-10] MEDS: Ensure Plus High Protein 120 ML LIQUID PO ×2 (09:36→12:03)
[2023-10-10] MEDS: Ibuprofen 600 MG Tablet PO (09:36)
[2023-10-10] MEDS: Pantoprazole Sodium 40 MG Tablet PO (09:37)
[2023-10-10] MEDS: Enoxaparin 40 MG/0.4 ML Syringe SC (09:37)
--- NOTE | 2023-10-10 11:19 | DCINST_ITS ---
Discharge Instructions Diet Discharge Diet: Light diet - advance as tolerated Activity Discharge Activity: May Shower (tomorrow once packing is removed) Lifting Restrictions: 10 pounds Dressing / Incision Call your doctor if your incision/area has: Sudden Increased Bleeding, Increased Pain/ Swelling, Increased Redness, Foul Smelling Discharge and Swelling at the incision site Call your doctor if you observe: Fever of 101 or Higher Remove Dressing in: 1 day (Remove packing and apply a pad or gauze over top of the open wound until it is completely closed) Additional Dressing/Incision Instructions:: You will need to change the pad daily or more often depending on saturation level. Once packing is out you may perform sitz bathes. Fill the tub with warm water and soak for 10 minutes. Perform this twice daily for 1 week. Follow Up Care Please Follow Up With: Heavenly Lee MD When: Please call our office at [phone] to schedule a 1 week follow-up appointment Test Results: Test results from this visit will be discussed in further detail at your follow- up appointment, if applicable. Discharge Plan Admission Admit Date/Time: 10/06/23 15:57 Attending Provider: Gillian Lozano Primary Care Provider: Alexey Knowles Consulting Providers: Sanjuanita Anton; Heavenly Lee Discharge Orders/Prescriptions Prescriptions: No Action pantoprazole 40 mg tablet,delayed release (DR/EC) 40 mg PO DAILY sulfamethoxazole-trimethoprim 800-160 mg tablet 1 tab PO Q12H amoxicillin 500 mg capsule 2,000 mg PO X1 Patient Comments: pt takes before dental procedure. last taken in july Referrals / Follow Up: Alexey Knowles MD [Primary Care Provider] -
--- NOTE | 2023-10-10 12:53 | DS.PCM_ITS ---
Providers Date of Admission: 10/06/23 Date of Discharge: 10/10/23 Primary Care Physician: Dr. Alexey Knowles MD Consultations 10/09/23 09:37 Consult: General Surgery Routine Consulting Provider: Heavenly Lee Reason for Consult: right buttock abscess EMERGENT Consult: No MD Notified: Yes Date Notified: 10/09/23 Time Notified: 09:37 Method of Notification: Text 10/09/23 14:04 Consult: Onc/Wound/electronic sensing equipment assembler Routine Comment: Reason for Consult:: right buttock abscess Reason For Visit: R BUTTOCK CELLULITIS REFRACTORY TO OUTPT Diagnosis Discharge Diagnosis (1) Abscess of right buttock: Status: Acute Code(s): L02.31 - Cutaneous abscess of buttock Plan #Right buttock cellulitis * failed outpatient treatment * CT of the pelvis showed cellulitis of the proximal right buttock, with question of early abscess formation * general surgery reviewed CT images and didnt think there was an abscess * patient now having drainage from the area, with associated fluctuance indicating abscess formation * on IV vancomycin and unasyn * PO tylenol, IV morphine and PO oxycodone for pain * wbc is 8.7. * consult general surgery to see if he will benefit from I&D. * * #GERD: on PPI DVT prophylaxis: lovenox Medications at Discharge Home Medications pantoprazole 40 mg tablet,delayed release 40 mg PO DAILY ACID REFLUX 10/06/23 amoxicillin 875 mg-potassium clavulanate 125 mg tablet 1 tab PO BID #14 tabs 10/10/23 Hospital Course Operations None and - (I&D of right buttock abscess) Procedures None and - Summary of Care Provided Minutes Spent on Discharge: 47 Hospital Course: Patient is a 72-year-old male with a past medical history as outlined was admitted through the ED on 10/06/2023 with a complaint of right buttock redness and swelling. He had been seen in an urgent care a few days before admission and placed on Bactrim. However his symptoms persisted so he came into the ED. He had a CT of the pelvis done which showed inflammatory changes in the medial aspect of the right buttock in keeping with cellulitis with a question of early abscess formation. Aspiration was attempted in the ED with no pus and case was discussed with the surgeon on-call who reviewed CT and did not feel there was an abscess or need for I&D. Patient was admitted and managed for cellulitis with failed outpatient management. He was placed on IV vancomycin and Unasyn. WBC was not elevated. He subsequently started having pus drainage from the abscess area. General surgery was therefore consulted and he had bedside I&D done on 10/09/2023. Wound cultures grew gram-negative tierra lactose dolly operator and gram- positive organism. Speciation was still pending at time of discharge. Patient felt much better. He was discharged home on 10/10/2023 and. General surgery recommendation was discharged on p.o. Augmentin for 7-day course. He is to foll ow-up with his primary care doctor within 1 to 2 weeks. He is also to follow-up with general surgery within 1 week. Patient seen and examined prior to discharge. He had no active complaints and had an uneventful night. Review of systems otherwise negative. Labs and vitals reviewed. Home medication reviewed and reconciled. Physical Exam Const alert, oriented x3, no apparent distress and well nourished General Appearance: cooperative, comfortable, well kempt and well developed HEENT normocephalic, head/scalp atraumatic, hearing grossly normal bilaterally, moist oral mucous membranes and oropharynx normal Mouth: oral and palatal mucosa normal and dry mucous membranes Eyes PERRL and EOMs intact bilaterally Neck no lymphadenopathy, supple and no JVD Lymph Lymphatic: no lymphadenopathy noted and no lymphedema noted Resp normal respiratory effort, normal air movement and clear to auscultation bilaterally Cardio regular rate, regular rhythm, S1 normal heart sound, S2 normal heart sound and no murmurs GI normal to inspection, nondistended, normoactive bowel sounds, soft to palpation, non-tender and non-distended Extremity normal capillary refill, no clubbing, cyanosis or edema and no calf tenderness Skin Skin Narrative: S/p I&D with right buttock abscess packed and dressed Neuro oriented x3, CN's II-XII intact bilaterally, moves all extremities, no focal motor deficits, no sensory deficits noted and deep tendon reflexes 2+ bilaterally Motor Exam: strength 5/5 throughout Psych thought process normal, cooperative and affect normal Appearance: appropriate Weight / BMI Weight Weight: 149 lb 12.8 oz Body Mass Index (BMI) 22.7 ABG / Lab / Microbiology Data 10/10/23 07:17 10/10/23 07:17 Laboratory: Laboratory Results - last 24 hr 10/09/23 20:25: Vancomycin Trough 11.7 10/10/23 07:17: WBC 6.5, RBC 3.45 L, Hgb 10.7 L, Hct 32.6 L, MCV 94.5 H, MCH 31.0, MCHC 32.8, RDW Std Deviation 42.5, RDW Coeff of So 12.2, Plt Count 270, MPV 10.2, Immature Gran % (Auto) 1.200 H, Neut % (Auto) 2.9 L, Lymph % (Auto) 33.4, [place] % (Auto) 14.1 H, Eos % (Auto) 6.4 H, Baso % (Auto) 1.1 H, Absolute Neuts (auto) 2.9, Absolute Lymphs (auto) 2.18, Nucleated RBC % 0, Differential Comment SCANNED, Reactive Lymphocytes 1+, Sodium 142, Potassium 3.8, Chloride 111 H, Carbon Dioxide 30.0, Anion Gap 1 L, BUN 16, Creatinine 0.67 L, Estim C reat Clear Calc 79.04, Est GFR (MDRD) Af Amer 149, Est GFR (MDRD) Non-Af 123, BUN/Creatinine Ratio 23.9 H, Glucose 97, Calcium 8.3 L Microbiology: Microbiology 10/09/23 10:42 Wound - Buttock Gram Stain - Final 10/09/23 10:42 Wound - Buttock Wound Culture - Preliminary GNR lactose dolly operator Gram positive organism 10/09/23 12:00 Aspirate - Buttock Gram Stain - Final D/C Instructions Discharge Diet: Light diet - advance as tolerated Discharge Activity: Return to Normal Activity Weight Bearing Status: Weight bearing as tolerated Call your doctor if your incision/area has: Sudden Increased Bleeding, Increased Pain/ Swelling, Increased Redness, Foul Smelling Discharge and Swelling at the incision site Call your doctor if you observe: Fever of 101 or Higher Additional Dressing/Incision Instructions: You will need to change the pad daily or more often depending on saturation level. Once packing is out you may perform sitz bathes. Fill the tub with warm water and soak for 10 minutes. Perform this twice daily for 1 week. Please Follow Up With: Heavenly Lee MD When: Please call our office at [phone] to schedule a 1 week follow-up appointment Meaningful Use Info Meaningful Use Diagnoses (Choose all that apply): None applicable Discharge Plan Admission Admit Date/Time: 10/06/23 15:57 Primary Reason for Your Visit: right buttock cellulitis with abscess Attending Provider: Gillian Lozano Primary Care Provider: Alexey Knowles Consulting Providers: Sanjuanita Anton; Heavenly Lee Instructions Patient Instructions: Cellulitis, Abscess Drainage Additional Instructions / Restrictions: to 2 pack and dress the abscess area daily. If having increased purulent drainage to pack and dress twice daily. Discharge Orders/Prescriptions Prescriptions: New amoxicillin-pot clavulanate 875-125 mg tablet 1 tab PO BID Qty: 14 0RF Continued pantoprazole 40 mg tablet,delayed release (DR/EC) 40 mg PO DAILY Discontinued sulfamethoxazole-trimethoprim 800-160 mg tablet 1 tab PO Q12H amoxicillin 500 mg capsule 2,000 mg PO X1 Patient Comments: pt takes before dental procedure. last taken in july Referrals / Follow Up: Heavenly Lee MD [Med Staff - Active Staff] - Within 1 Week Alexey Knowles MD [Primary Care Provider] - Within 2 Weeks Disposition Disposition (needs filled in before D/C Order can be placed): Home, Self Care Charges/Coding Visit Charges Inpatient E&M: 80798 Disch Hosp >30min
--- NOTE | 2023-10-10 12:53 | DCINST_ITS ---
Discharge Instructions Diet Discharge Diet: Light diet - advance as tolerated Activity Discharge Activity: Return to Normal Activity Weight Bearing Status: Weight bearing as tolerated Dressing / Incision Call your doctor if your incision/area has: Sudden Increased Bleeding, Increased Pain/ Swelling, Increased Redness, Foul Smelling Discharge and Swelling at the incision site Call your doctor if you observe: Fever of 101 or Higher Additional Dressing/Incision Instructions:: You will need to change the pad daily or more often depending on saturation level. Once packing is out you may perform sitz bathes. Fill the tub with warm water and soak for 10 minutes. Perform this twice daily for 1 week. Follow Up Care Please Follow Up With: Heavenly Lee MD Test Results: Test results from this visit will be discussed in further detail at your follow- up appointment, if applicable. Discharge Plan Admission Admit Date/Time: 10/06/23 15:57 Primary Reason for Your Visit: right buttock cellulitis with abscess Attending Provider: Gillian Lozano Primary Care Provider: Alexey Knowles Consulting Providers: Sanjuanita Anton; Heavenly Lee Instructions Patient Instructions: Cellulitis, Abscess Drainage Discharge Orders/Prescriptions Prescriptions: New amoxicillin-pot clavulanate 875-125 mg tablet 1 tab PO BID Qty: 14 0RF Continued pantoprazole 40 mg tablet,delayed release (DR/EC) 40 mg PO DAILY Discontinued sulfamethoxazole-trimethoprim 800-160 mg tablet 1 tab PO Q12H amoxicillin 500 mg capsule 2,000 mg PO X1 Patient Comments: pt takes before dental procedure. last taken in july Referrals / Follow Up: Heavenly Lee MD [Med Staff - Active Staff] - Within 1 Week Alexey Knowles MD [Primary Care Provider] - Within 2 Weeks Disposition Disposition (needs filled in before D/C Order can be placed): Home, Self Care
--- NOTE | 2023-10-10 13:01 | CASEMGMT ---
FAHEEM CM to pt room at this time. Pt at bedside. Pt states that he feels safe and comfortable being DC home today. Pt states that the nurse is going to be providing education for the pt wound care. Pt and pt state that they feel comfortable caring for this at home. Pt denies the need for HHC or OP therapy at this time. Pt denies any other homecoming needs and states that he is ready to go home.
--- NOTE | 2023-10-10 13:26 | PHA.DC_ITS ---
Pharmacy [facility] has performed discharge medication reconciliation and counseling for this patient. The patient's discharge medication list was reviewed for discrepancies and discrepancies were resolved. The patient was counseled on the following discharge medications and changes in medications for homegoing were reviewed. The Reason for Use, instructions for use, and potential side effects were reviewed for all new medications. The patient's questions regarding all of their medications were answered. 1. Amoxicillin/clavulanate 875/125 mg PO BID x 7 days The patient was able to verbally demonstrate an understanding of their discharge medications. The patient was counselled on new medication by pharmacy technician program director Cesar. Medications at Discharge Home Medications pantoprazole 40 mg tablet,delayed release 40 mg PO DAILY ACID REFLUX 10/06/23 amoxicillin 875 mg-potassium clavulanate 125 mg tablet 1 tab PO BID #14 tabs 10/10/23
--- NOTE | 2023-10-10 14:18 | WOUNDNOTE ---
Removed dressing and packing to teach how to change the dressing. no purulence noted. still some erythema and induration noted. gently cleansed site with soap and water. pat dry. repacked with 1/4 nugauze packing. placed folded 4x4's between buttocks and placed a peripad in mesh panties for drainage. the tape has been bothering patient with removal of the dressing. plan is for to pack wound again tomorrow and then the following day can remove packing and leave out. patient and aware to call surgeons office if there is increased redness, paln, purulence, or fevers/chills. patient and appreciative of care and deny further questions or concerns.
[2023-10-10 15:30] VITALS: BP 117/75; PULSE 74; RESP 16; TEMP 36.6; O2SAT 96
== END 2023-10-10 15:35 | disposition home or self-care (01) | DRG 603 ==
LOC: ED 14:01 → MS3 16:54
PROVIDERS: Admitting Provider Internal Medicine; Emergency Provider Emergency Medicine; PCP Family Medicine; Visit Provider Student in an Organized Health Care Education/Training Program
DX: L02.31 Cutaneous abscess of buttock (principal); K21.9 Gastro-esophageal reflux disease without esophagitis; L03.317 Cellulitis of buttock
CPT/HCPCS: 36415; 72193; 80048; 80202; 85025; 87070; 87075; 87077; 87186; 87205; 87641; 97802; 99284; J7030; J7040; A4216; J0295